=== PATIENT | male | born 1970 | race Asian ===

== ENCOUNTER 2016-09-19 00:09 | Emergency (ER) | payer OTHER ==
[~2016-09-19] VITALS: Ht 175.3 cm; Wt 83.5 kg
[~2016-09-19 00:09] MED LIST: AMLO5TAB2 PO; FENO200C PO; LOSA50TA6 PO; MV,C1TAB21 PO; OLME20TA5 PO; OMG1KC PO; VITA1CAP59 PO
[2016-09-19] MEDS ORDERED: METFORMIN (00:27)
[2016-09-19 01:28] LABS: BASOPHILS % (AUTO) 0 % (0-10); EOSINOPHILS # (AUTO) 0.1 10^3/uL (0.0-0.3); EOSINOPHILS % (AUTO) 1 % (0-10); LYMPHOCYTES # (AUTO) 2.6 X 10^3 (1.0-4.0); LYMPHOCYTES % (AUTO) 39 % (12-44); MEAN CORPUSCULAR HEMOGLOBIN 28 PG (25-34); MEAN CORPUSCULAR HGB CONC 34 G/DL (32-36); MEAN CORPUSCULAR VOLUME 82 FL (80-99); MEAN PLATELET VOLUME 12.3 FL (7.4-10.4); MONOCYTES # (AUTO) 0.6 X 10^3 (0.0-1.0); MONOCYTES % (AUTO) 10 % (0-12); NEUTROPHILS # (AUTO) 3.2 X 10^3 (1.8-7.8); NEUTROPHILS % (AUTO) 49 % (42-75); PLATELET COUNT 245 10^3/uL (130-400); RED CELL DISTRIBUTION WIDTH 12.7 % (10.0-14.5); WHITE BLOOD COUNT 6.6 10^3/uL (4.3-11.0)
[2016-09-19 01:46] LABS: ANION GAP 14 MMOL/L (5-14); BLOOD UREA NITROGEN 16 MG/DL (7-18); BUN/CREATININE RATIO 14; CALCIUM 9.5 MG/DL (8.5-10.1); CARBON DIOXIDE 22 MMOL/L (21-32); CHLORIDE 105 MMOL/L (98-107); CREATININE SERUM 1.11 MG/DL (0.60-1.30); GFR ESTIMATED > 60; GLUCOSE 154 MG/DL (70-105); MAGNESIUM 2.2 MG/DL (1.8-2.4); POTASSIUM 3.2 MMOL/L (3.6-5.0); SODIUM 141 MMOL/L (135-145)
[2016-09-19] MEDS ORDERED: KCL 10 MEQ TAB (MICRO K) PO ONE (02:15)
[2016-09-19] MEDS ORDERED: METO-270 PO (02:25)
--- NOTE | 2016-09-19 02:25 | ED General ---
General Chief Complaint: General Problems/Pain Stated Complaint: NUMBNESS IN LEFT TOE Nursing Triage Note: PT TO ED 6 W/ C/O PAIN TO LT CALF CHRONIC, WORSE X5 AGO. REPORTS HE WENT TO SLEEP W/ PAIN ET WOKE W/ NUMBNESS IN HIS 5TH TOE ON HIS LT FOOT. REPORTS NOW HAS NUMBNESS IN HIS LAST THREE TOES ON HIS LT FOOT BUT NOWHERE ELSE ON THE FOOT. REPORTS HE ALSO HAS NUMBNESS TO THE LT EYELID. DENIES INJURY. DENIES ANY C/O PAIN AT THIS TIME. Nursing Sepsis Screen: No Definite Risk Source of Information: Patient Exam Limitations: No Limitations History of Present Illness Time Seen by Provider: 00:15 Initial Comments This 46-year-old gentleman presents to the emergency room with complaints of paresthesia in his left third through fifth toes. He also complains of hypertension. Blood pressure has been as high as 161/111. He notes some pain in his left calf and cramping earlier in the week. He also had some numbness of the left eyelid. Blood pressure and paresthesias are now improving. Patient has diabetes and recently purchased a glucometer. He reports blood sugars have been in the 80s and 90s. His A1c most recently was 6.9. He has been using heat and ibuprofen to treat his calf pain that resulted from the cramping. Dr. Romero as his primary care provider. Patient notes he took an extra one half tablet of amlodipine this evening due to the hypertension. Patient notes that he has chronic sinus tachycardia. Allergies and Home Medications Allergies Coded Allergies: No Known Drug Allergies (Unverified , 10/30/09) Home Medications Amlodipine Besylate 5 Mg Tablet, 5 MG PO DAILY for 30 Days Prescribed by: HELGA MELÉNDEZ on 10/25/12 1433 Fenofibrate,Micronized 200 Mg Capsule, 1 EACH PO DAILY, (Reported) Metoprolol Succinate 25 Mg Tab.er.24h, 25 MG PO DAILY, #30 Prescribed by: INDY HARGROVE on 09/19/16 0225 Mv,Ca,Min/Iron Fum/Fa/Lyco/Lut 1 Each Tablet, 1 EACH PO DAILY, (Reported) [place] 3 Polyunsat Fatty Acids 1,000 Mg Cap, 1,000 MG PO DAILY, (Reported) Vitamin B Complex 1 Cap Capsule, 1 CAP PO DAILY, (Reported) [Metformin] , (Reported) Constitutional: no symptoms reported EENTM: see HPI Respiratory: no symptoms reported Cardiovascular: no symptoms reported Gastrointestinal: no symptoms reported Genitourinary: no symptoms reported Musculoskeletal: see HPI Skin: no symptoms reported Psychiatric/Neurological: See HPI Hematologic/Lymphatic: No Symptoms Reported Past Fwaogbt-Hlnsbe-Qlpiuc Hx Patient Social History Alcohol Use: Denies Use Recreational Drug Use: No Smoking Status: Never a Smoker Recent Foreign Travel: No Contact w/Someone Who Travel: No Recent Infectious Disease Expo: No Recent Hopitalizations: No Surgeries HX Surgeries: Yes Surgeries: Appendectomy Respiratory Hx Respiratory Disorders: No Cardiovascular Hx Cardiac Disorders: Yes (TACHYCARDIA) Cardiac Disorders: Hypertension Neurological Hx Neurological Disorders: No Reproductive System Hx Reproductive Disorders: No Sexually Transmitted Disease: No Genitourinary Hx Genitourinary Disorders: No Gastrointestinal Hx Gastrointestinal Disorders: Yes Gastrointestinal Disorders: Gastroesophageal Reflux Musculoskeletal Hx Musculoskeletal Disorders: No Endocrine Hx Endocrine Disorders: Yes Endocrine Disorders: Diabetes, Non-Insulin dep HEENT HX ENT Disorders: No Cancer Hx Cancer: No Psychosocial Hx Psychiatric Problems: No Blood Transfusions Hx Blood Disorders: Yes (vitamin B-12 deficiency, vitamin D deficiency) Physical Exam Vital Signs Vital Sign - Last 12Hours 09/19/16 00:13 Temp 97.8 Pulse 110 Resp 20 B/P (MAP) 161/111 Pulse Ox 98 O2 Delivery Room Air Capillary Refill : Less Than 3 Seconds General Appearance: No Apparent Distress, WD/WN HEENT: PERRL/EOMI, Normal ENT Inspection, Pharynx Normal Neck: Normal Inspection Respiratory: Lungs Clear, Normal Breath Sounds, No Accessory Muscle Use, No Respiratory Distress Cardiovascular: Regular Rate, Rhythm, No Edema, No Murmur, Normal Peripheral Pulses Extremity: Normal Inspection, Non Tender, No Calf Tenderness, No Pedal Edema Neurologic/Psychiatric: Alert, Oriented x3, No Motor/Sensory Deficits, Normal Mood/Affect, logistics intern II-XII Norm as Tested Skin: Normal Color, Warm/Dry Progress/Results/Core Measures Results/Orders Lab Results Laboratory Tests Test 09/19/16 01:15 Range/Units White Blood Count 6.6 4.3-11.0 10^3/uL Red Blood Count 5.30 4.35-5.85 10^6/uL Hemoglobin 14.6 13.3-17.7 G/DL Hematocrit 43 40-54 % Mean Corpuscular Volume 82 80-99 FL Mean Corpuscular Hemoglobin 28 25-34 PG Mean Corpuscular Hemoglobin Concent 34 32-36 G/DL Red Cell Distribution Width 12.7 10.0-14.5 % Platelet Count 245 130-400 10^3/uL Mean Platelet Volume 12.3 H 7.4-10.4 FL Neutrophils (%) (Auto) 49 42-75 % Lymphocytes (%) (Auto) 39 12-44 % Monocytes (%) (Auto) 10 0-12 % Eosinophils (%) (Auto) 1 0-10 % Basophils (%) (Auto) 0 0-10 % Neutrophils # (Auto) 3.2 1.8-7.8 X 10^3 Lymphocytes # (Auto) 2.6 1.0-4.0 X 10^3 Monocytes # (Auto) 0.6 0.0-1.0 X 10^3 Eosinophils # (Auto) 0.1 0.0-0.3 10^3/uL Basophils # (Auto) 0.0 0.0-0.1 10^3/uL Sodium Level 141 135-145 MMOL/L Potassium Level 3.2 L 3.6-5.0 MMOL/L Chloride Level 105 98-107 MMOL/L Carbon Dioxide Level 22 21-32 MMOL/L Anion Gap 14 5-14 MMOL/L Blood Urea Nitrogen 16 7-18 MG/DL Creatinine 1.11 0.60-1.30 MG/DL Estimat Glomerular Filtration Rate > 60 BUN/Creatinine Ratio 14 Glucose Level 154 H 70-105 MG/DL Calcium Level 9.5 8.5-10.1 MG/DL Magnesium Level 2.2 1.8-2.4 MG/DL My Orders Orders - INDY CLEARY MD Basic Metabolic Panel (09/19/16 01:09) Cbc With Automated Diff (09/19/16 01:09) Magnesium (09/19/16 01:09) Potassium Chloride (Tablet) (Klor Con Ta (09/19/16 02:15) Metoprolol Succinate (Xl) Tab (Toprol Xl (09/19/16 02:30) Medications Given in ED Current Medications Medications Dose Ordered Sig/Jesus Route Start Time Stop Time Status Last Admin Dose Admin Metoprolol Succinate 25 mg ONCE ONCE PO 09/19/16 02:30 09/19/16 02:31 DC 09/19/16 02:30 25 MG Potassium Chloride 40 meq ONCE ONCE PO 09/19/16 02:15 09/19/16 02:16 DC 09/19/16 02:19 40 MEQ Vital Signs/I&O Vital Sign - Last 12Hours 09/19/16 09/19/16 00:13 02:34 Temp 97.8 Pulse 110 97 Resp 20 18 B/P (MAP) 161/111 Pulse Ox 98 98 O2 Delivery Room Air Blood Pressure Mean: 128 Progress Note : Progress Note Basic blood work was drawn to evaluate his leg cramping. He was found to be hypokalemic and oral potassium was replaced. Blood pressure was trending down and his symptoms resolved during his ER stay. We discussed further treatment of his blood pressure and tachycardia. A beta loni was chosen and his first dose of Toprol-XL was administered in the ER. Departure Impression Impression: Primary Impression: Hypokalemia Additional Impressions: Paresthesia Tachycardia Hypertension Qualified Codes: I10 - Essential (primary) hypertension Disposition: HOME, SELF-CARE Condition: Improved Departure-Patient Inst. Decision time for Depature: 02:10 Referrals: ALVIN ROMERO DO (PCP/Family) Primary Care Physician Patient Instructions: Hypokalemia Add. Discharge Instructions: Drink plenty of clear liquids. Use your medications as prescribed. Avoid excessive stimulants such as caffeine. Follow-up with Dr. Romero within the next week. Return to the ER if symptoms worsen. All discharge instructions reviewed with patient and/or family. Voiced understanding. Scripts Metoprolol Succinate (Metoprolol Succinate) 25 Mg Tab.er.24h 25 MG PO DAILY, #30 TAB Prov: INDY CLEARY MD 09/19/16 Copy Copies To 1: ALVIN ROMERO JOSHUA T MD Sep 19, 2016 02:25
[2016-09-19 02:34] VITALS: BP 146/97
== END 2016-09-19 02:34 | disposition home or self-care (01) ==
LOC: EDUNIT# 00:09 → ER 00:11
DX: E87.6 Hypokalemia (principal); R20.2 Paresthesia of skin; R00.0 Tachycardia, unspecified; I10 Essential (primary) hypertension; E11.9 Type 2 diabetes mellitus without complications; Z79.899 Other long term (current) drug therapy
CPT/HCPCS: 36415; 80048; 83735; 85025; 99281